=== PATIENT | male | born 1965 | race African-American/Black ===

== ENCOUNTER → 2017-02-24 | Outpatient (CLI) | payer OTHER ==
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
== END | disposition home or self-care (01) ==
LOC: RADCTMAIN 12:46
PROVIDERS: ATTEND Family Medicine
DX: M47.817 Spondylosis without myelopathy or radiculopathy, lumbosacral region (principal)
CPT/HCPCS: 72131

== ENCOUNTER → 2017-07-10 | Outpatient (CLI) | payer OTHER ==
[2017-07-10 08:05] LABS: Basophils % (A) 0 %; Eosinophils # (A) 0.1 k/uL (0-0.7); Eosinophils % (A) 3 %; HCT 44.4 % (39.0-53.0); HGB 14.4 gm/dL (13.0-17.5); Lymphocytes # (A) 1.7 k/uL (1.0-4.8); Lymphocytes % (A) 41 %; MCH 30.1 pg (25.0-35.0); MCHC 32.3 g/dL (31.0-37.0); Monocytes # (A) 0.3 k/uL (0-1.0); Monocytes % (A) 8 %; Neutrophils # (A) 1.9 k/uL (1.3-7.7); Neutrophils % (A) 46 %; Platelet Count 219 k/uL (150-450); RBC 4.78 m/uL (4.30-5.90); RDW 12.8 % (11.5-15.5); WBC 4.1 k/uL (3.8-10.6)
[2017-07-10 08:16] LABS: INR 1.1 (<1.2); Prothrombin Time 10.8 sec (9.0-12.0)
--- NOTE | 2017-07-10 08:24 | US ---
EXAMINATION TYPE: US liver DATE OF EXAM: 07/10/2017 COMPARISON: NONE CLINICAL HISTORY: 51-year-old male B18.2 Chronic Hepatitis C. No symptoms, having lab work after US, known Hep C TECHNIQUE: Multiple sonographic images of the right upper quadrant are obtained. FINDINGS: Liver Length: 16.3 cm Gallbladder Wall: 0.2 cm CBD: 0.3 cm Right Kidney: 11.6 x 5.2 x 4.9 cm Pancreas: Limited views due to bowel gas. The visualized portions of the pancreatic neck and body ap pear within normal limits. Liver: Upper limits of normal in size. Slightly inhomogeneous echotexture. No focal lesion identifie d. Gallbladder: wnl Evidence for sonographic Garcia's sign: no CBD: wnl Right Kidney: No hydronephrosis IMPRESSION: Slightly inhomogeneous appearance to the liver could be on a technical basis or could reflect underly ing nonspecific hepatocellular disease. No sonographic evidence for hepatoma.
[2017-07-10 08:45] LABS: Albumin 3.7 g/dL (3.5-5.0); Bilirubin, Delta 0.3 mg/dL (0.0-0.2); Total Bilirubin 0.3 mg/dL (0.2-1.3); Total Protein 6.6 g/dL (6.3-8.2)
[2017-07-12 14:34] LABS: HCV Quant Log 6.26 (<1.08)
== END | disposition home or self-care (01) ==
LOC: RADUSWWP 07:22
DX: R93.2 Abnormal findings on diagnostic imaging of liver and biliary tract (principal); B18.2 Chronic viral hepatitis C
CPT/HCPCS: 36415; 76705; 80076; 85025; 85610; 87522; 87902

== ENCOUNTER 2017-12-02 20:47 | Emergency (ER) | payer OTHER ==
[2017-12-02 21:03] VITALS: BP 127/79; PULSE 68; RESP 17; TEMP 98.6
[2017-12-02] MEDS ORDERED: LIDOCAINE 1% INJ 10MG/ML (20 ML MDV) SQ STA (21:35)
[2017-12-02] MEDS ORDERED: LIDOCAINE/EPINEPHR/TETRACAINE 5 ML BOTTLE TOPICAL ONE (21:35)
[2017-12-02] MEDS ORDERED: DIPH,PERTUS(ACELL)TETVAC-LF 0.5 ML VIAL IM ONE (21:36)
[2017-12-02] MEDS ORDERED: AMOXIC-POT CLAV 875MG STARTER 2 EACH TABLET PO STA (21:36)
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
[2017-12-02] MEDS ORDERED: ACET/COD 300 MG/30 MG STARTER PACK 6 TAB BTL PO STA (22:50)
== END 2017-12-02 22:57 | disposition home or self-care (01) ==
LOC: EC 20:47
DX: S02.5XXA Fracture of tooth (traumatic), initial encounter for closed fracture (principal); S01.511A Laceration without foreign body of lip, initial encounter; Z23 Encounter for immunization; Z88.6 Allergy status to analgesic agent; F17.200 Nicotine dependence, unspecified, uncomplicated; W20.8XXA Other cause of strike by thrown, projected or falling object, initial encounter
CPT/HCPCS: 90715; 99283; 40650; 90471; J2001

== ENCOUNTER 2019-12-27 17:59 | Emergency (ER) | payer OTHER ==
[2019-12-27] MEDS ORDERED: HYDROmorphone 1 MG/ML 1 ML SYRINGE IVP STA (18:01)
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
--- NOTE | 2019-12-27 18:33 | XR ---
EXAMINATION TYPE: XR shoulder complete LT DATE OF EXAM: 12/27/2019 COMPARISON: NONE HISTORY: Injury. Pain. TECHNIQUE: 3 views FINDINGS: There is malalignment of the AC joint. There is 1.5 cm inferior displacement of the acromio n. There is widening of the coracoclavicular joint space. The glenohumeral joint is anatomic. IMPRESSION: Edematous tear at the AC joint. No fracture seen.
--- NOTE | 2019-12-27 18:34 | XR ---
EXAMINATION TYPE: XR humerus LT DATE OF EXAM: 12/27/2019 COMPARISON: NONE HISTORY: Pain TECHNIQUE: 4 views FINDINGS: There is widening and malalignment of the AC joint related to ligamentous tear. The glenohu meral joint is anatomic. Elbow joint appears intact. I see no fracture. IMPRESSION: Ligamentous tear at the AC joint. No evidence of humerus fracture.
[2019-12-27] MEDS ORDERED: ACET/COD 300 MG/30 MG STARTER PACK 6 TAB BTL PO STA (18:55)
[2019-12-27 19:14] VITALS: RESP 20
[2019-12-27 19:15] VITALS: BP 127/89; PULSE 68; TEMP 98.4
== END 2019-12-27 19:15 | disposition home or self-care (01) ==
LOC: EC 17:59
DX: S43.102A Unspecified dislocation of left acromioclavicular joint, initial encounter (principal); S43.52XA Sprain of left acromioclavicular joint, initial encounter; F17.200 Nicotine dependence, unspecified, uncomplicated; Z88.6 Allergy status to analgesic agent; V28.4XXA Motorcycle driver injured in noncollision transport accident in traffic accident, initial encounter; Y92.488 Other paved roadways as the place of occurrence of the external cause; Y93.55 Activity, bike riding
CPT/HCPCS: 99284; 96374; 73030; 73060; J1170